=== PATIENT | male | born 1960 | race Caucasian/White ===

== ENCOUNTER 2017-02-27 11:35 | Emergency (ER) | payer OTHER ==
--- NOTE | 2017-02-27 11:59 | PDOC ---
History of Present Illness - General Chief Complaint: Pain Stated Complaint: ABD PAIN Time Seen by Provider: 02/27/17 11:57 - History of Present Illness Initial Comments: 02/27/17 13:56 Chief complaint: Abdominal pain History of present illness: Patient complains of right sided abdominal pain for approximately 5 days. Initially there were multiple episodes of nonbloody diarrhea, but there have been no bowel movements for 2 days. Patient has nausea and anorexia but no vomiting. He has attributed his pain to "redundant bowel" that was discovered on a prior CT. Review of systems: No fever/chills, URI symptoms, sore throat, cough, chest pain , shortness of breath, hematemesis, melena, bloody stool. Remainder systems reviewed and found to be negative. The patient has not had a bowel movement nor has he passed any gas for approximately 2 days. Past medical history: Bipolar disease, redundant right colon, high blood pressure, elevated cholesterol, prediabetes Medications as noted Social history: No tobacco, occasional social alcohol, none recently, no drugs. Active without disability. Stable home and family Family history: Brother with diabetes, no early coronary artery disease, stroke , TIA, other metabolic diseases, cancer. Physical exam: Alert and oriented well-developed well-nourished mild distress secondary to right-sided abdominal pain. Cooperative Afebrile, vital signs normal PERRLA, fundi benign, ENT clear No pallor or icterus Neck supple without bruit mass or nodes Lungs clear with full breath sounds throughout bilaterally CV S1 and S2 distant without murmur rub or gallop pulses full and symmetric no JVD or edema Abdomen nondistended. Bowel sounds are present and normal in character. Soft without mass or organomegaly. There is mild to moderate tenderness, diffuse, without guarding or rebound. No CVAT Rectal exam no masses or tenderness. Small amount of watery stool, light brown. Skin clear, no rash, adequate turgor and wet mucous membranes Extremities no CCE Neurological intact Impression: GI illness probably began as acute gastroenteritis, history of redundant bowel, rule out partial obstruction, rule out appendicitis. Labs and CT. Further medical/surgical evaluation depending on results. 02/28/17 07:14 Past History - Past Medical History Allergies/Adverse Reactions: Allergies Allergy/AdvReac Type Severity Reaction Status Date / Time Iodine and Iodide Containing Allergy Verified 02/27/17 11:58 Produc pineapple Allergy Verified 02/27/17 11:58 shellfish derived Allergy Verified 02/27/17 11:58 MINTS Allergy Uncoded 02/27/17 11:58 Home Medications: Ambulatory Orders Acetaminophen W/ Codeine #3 [Tylenol # 3 -] 1 - 2 tab PO Q4H PRN #12 tablet MDD 8 02/27/17 Citalopram Hydrobromide [Citalopram HBr] 40 mg PO DAILY 02/27/17 Hyoscyamine Sulfate [Levsin-Sl] 0.125 mg SL TID PRN #10 tab.subl 02/27/17 [place] Carbonate [Eskalith -] 150 mg PO ASDIR 02/27/17 Metformin HCl 850 mg PO BID 02/27/17 Simvastatin 40 mg PO DAILY 02/27/17 ED Treatment Course - LABORATORY CBC & Chemistry Diagram: 02/27/17 12:00 02/27/17 12:00 Medical Decision Making - Medical Decision Making 02/27/17 14:02 Normal WBC. Remainder of CBC without abnormalities Chemistries mildly elevated glucose, minimally elevated LFTs. Urinalysis clear CT shows no evidence of obstruction. No definite abnormalities in the abdomen or pelvis. No evidence of appendicitis. There is a small hernia into the mediastinum. Patient's benign presentation labs and CT suggests that this is a viral gastroenteritis. Diarrhea has subsided. There is been no recent vomiting and is tolerating by mouth fluids. Is advised to continue fluids, advancing his diet as tolerated and prescribed an antispasmodic. Discharged with his significant other in no pain or other distress, to return to the ER if pain becomes more severe, or significant diarrhea recurs. Otherwise follow-up with primary physician. *DC/Admit/Observation/Transfer Diagnosis at time of Disposition: Gastroenteritis - Discharge Dispostion Disposition: HOME Condition at time of disposition: Stable Admit: No - Prescriptions Prescriptions: Hyoscyamine Sulfate [Levsin-Sl] 0.125 mg SL TID PRN #10 tab.subl PRN Reason: cramps, spasm Acetaminophen W/ Codeine #3 [Tylenol # 3 -] 1 - 2 tab PO Q4H PRN #12 tablet MDD 8 PRN Reason: Pain - Referrals Referrals: Rosana Palacio MD [Primary Care Provider] - 2 Days - Patient Instructions Printed Discharge Instructions: DI for Bacterial Gastroenteritis -- Adult
[2017-02-27 12:03] VITALS: BP 147/85; PULSE 89; TEMP 98.5; BMI 31.5
[2017-02-27 12:13] LABS: BASOPHIL 0.5 % (0-2.0); EOSINOPHIL 3.5 % (0-4.5); MCH 30.6 pg (25.7-33.7); MCHC 33.9 g/dl (32.0-35.9); MEAN CELL VOLUME 90.1 fl (80-96); MEAN PLT VOLUME 8.5 fl (7.5-11.1); NEUTROPHILS 68.4 % (42.8-82.8); PLATELET COUNT 247 K/MM3 (134-434); RDW 12.1 % (11.9-15.9)
[2017-02-27] MEDS ORDERED: ONDANSETRON 4 MG/2 ML VIAL ONE (12:21)
[2017-02-27] MEDS ORDERED: morphine CARPU-JECT 2 MG/1 ML DISP.SYRIN ONE (12:22)
[2017-02-27 12:32] LABS: ALBUMIN 4.4 g/dl (3.5-5.0); ALK PHOS 103 U/L (32-92); ANION GAP 8 (8-16); BILIRUBIN,TOTAL 1.1 mg/dl (0.2-1.0); CALCIUM 10.1 mg/dl (8.4-10.2); CO2 23 mmol/L (22-28); CREATININE 0.8 mg/dl (0.6-1.3); GLUCOSE,RANDOM 149 mg/dl (74-106); SGOT/AST 29 U/L (10-42); SGPT/ALT 48 U/L (10-40); TOT PROT 7.5 g/dl (6.4-8.3)
[2017-02-27 12:50] LABS: PH,URINE 5.5 (4.5-8); URINE APPEARANCE Clear; URINE BILIRUBIN Negative (NEGATIVE); URINE GLUCOSE (UA) Negative (NEGATIVE); URINE KETONE Negative (NEGATIVE); URINE NITRITE Negative (NEGATIVE); URINE PROTEIN Negative (NEGATIVE); URINE UROBILINOGEN 0.2 (0.2-1.0)
[2017-02-27 12:51] LABS: URINE BLOOD Trace-intact (NEGATIVE); URINE COLOR YELLOW; URINE LEUK ESTERASE TRACE (NEGATIVE)
[2017-02-27 12:55] LABS: URINE BACTERIA FEW /hpf (NEGATIVE); URINE RBC 0-3 /hpf (0-3); URINE WBC 0-3 /hpf (3-5)
[2017-02-27] MEDS ORDERED: ONDANSETRON 4 MG/2 ML VIAL IVPB ONE (12:58)
[2017-02-27] MEDS ORDERED: morphine CARPU-JECT 4 MG/1 ML DISP.SYRIN IVPUSH ONE (12:58)
[2017-02-27] MEDS ORDERED: SODIUM CHLORIDE 1,000 ML IV STA (12:58)
== END 2017-02-27 15:26 | disposition home or self-care (01) ==
LOC: FER 11:35
PROC: 3E033NZ Introduction of Analgesics, Hypnotics, Sedatives into Peripheral Vein, Percutaneous Approach (ICD-10-PCS; principal; 2017-02-27)
PROC: 3E033GC Introduction of Other Therapeutic Substance into Peripheral Vein, Percutaneous Approach (ICD-10-PCS; 2017-02-27)
PROC: 3E0337Z Introduction of Electrolytic and Water Balance Substance into Peripheral Vein, Percutaneous Approach (ICD-10-PCS; 2017-02-27)
DX: K52.9 Noninfective gastroenteritis and colitis, unspecified (principal); F31.9 Bipolar disorder, unspecified
CPT/HCPCS: 36415; 74176-TC; 80053; 81003; 81015; 82272; 85025; 99283-25